=== PATIENT | male | born 1985 | race Caucasian/White ===

== ENCOUNTER 2017-06-14 22:00 | Inpatient (IN) | payer BC ==
[~2017-06-14] VITALS: Ht 182.9 cm; Wt 136.1 kg
--- NOTE | ~2017-06-14 | DS ---
Unit #: [id number] #: [id number] Patient: MARIS GUPTA [id number] [facility] [address] [place] [address] [id number] MR#: [id number] NAME: MARIS GUPTA ROOM: [facility] Age: 32 Sex: M Admission Date: 06/15/2017 : 1985 Discharge Date: 06/16/2017 Attending Physician: Malcolm Fabian M.D. Primary Care Physician: Primary Care Physician No DISCHARGE SUMMARY REASON FOR ADMISSION Depression. DIAGNOSTIC STUDIES LABORATORY RESULTS: Glucose 117. HOSPITAL COURSE The patient was admitted to inpatient unit on 06/15/2017 and discharged on 06/16/2017. The patient was attentive and cooperative in the program, able to participate in all the programing, maintained safe behavior. The patient refused to take any medication. Subsequently, the patient made progress. The patient requested for discharge. Denied any suicidal or homicidal ideation. Subsequently, the patient was discharged with a plan to follow up in outpatient program. DISCHARGE MEDICATIONS None as the patient refused. DISCHARGE DIAGNOSES Psychiatric: Major depressive disorder, recurrent, severe, F33.2. Secondary diagnosis: Deferred. Medical diagnosis: Obesity. Stressors: Psychosocial stressors. DISCHARGE INSTRUCTIONS The patient to follow up in outpatient clinic as per social media director. CONDITION ON DISCHARGE The patient was pleasant and cooperative. Denied any psychotic symptom or any suicidal ideation. PROGNOSIS Guarded. DIET AND ACTIVITY As tolerated. Dictated by... Malcolm Fabian M.D. Unit #: [id number] #: [id number] Patient: MARIS GUPTA SZC/modl TD: 06/16/2017 18:11 JOB #: [id number] DISCHARGE SUMMARY Page 1 of 1 X Malcolm Fabian MD X DISCHARGE SUMMARY
--- NOTE | ~2017-06-14 | PA ---
Unit #: [id number] #: [id number] Patient: MARIS ARGUETA [id number] [facility] [address] [place] [address] [id number] MR#: [id number] NAME: MARIS ARGUETA ROOM: 13 Age: 32 Sex: M Admission Date: 06/15/2017 : 1985 Date of Assessment: Attending Physician: Malcolm Fabian M.D. Admitting Physician: Malcolm Fabian M.D. Primary Care Physician: Primary Care Physician No PSYCHIATRIC ASSESSMENT INFORMANTS The patient reliability, fair informant and chart reliability, good. CHIEF COMPLAINT Depression and suicidal ideation. HISTORY OF PRESENT ILLNESS Mr. Mohan Argueta is a 32-year-old white male, who works as a social worker masters in [place], reported under a lot of stress, feeling sad and depressed. The patient presented with his brother and girlfriend due to suicidal ideation with a plan to attempt to shoot himself. The patient reported that he has access to weapon at home and reported that he was upset of having an argument with mother and voiced suicidal ideation, but denied any current suicidal ideation. Denied any homicidal ideation. The patient reports making those comments about harming himself. The patient reported increased symptoms of depression due to financial stress. Reported that he does not get any help, but overly concerned now. The patient denied any use of any drugs or alcohol. Currently, on no medication. Needing inpatient admission at this time for psychiatric stabilization. PAST PSYCHIATRIC HISTORY Remarkable for history of depression. No known history of any previous treatment. No history of any suicide attempt. FAMILY HISTORY AND SOCIAL HISTORY The patient has a good support system. Family psychiatric illness is unremarkable for any history of any psychiatric illness in the family. No known history of any abuse. No legal charges. MEDICAL HISTORY Unremarkable for any chronic medical condition, except for obesity. Musculoskeletal; muscle strength and tone, no atrophy or abnormal movement. Gait normal. MEDICATION HISTORY None. ALLERGIES No known drug allergies. SUBSTANCE ABUSE HISTORY History of alcohol use, age of onset 20 and marijuana, age of onset 20. Unit #: [id number] #: [id number] Patient: MARIS ARGUETA The patient denied any consequences. No history of blackout, HIV, hepatitis, withdrawal symptom, or any IV drug use. REVIEW OF SYSTEMS HEENT: Eyes, clear. Ears, nose, mouth, and throat; clear. CARDIOVASCULAR: Unremarkable. RESPIRATORY: Unremarkable. GI: Unremarkable. : Unremarkable. SKIN: Unremarkable. LYMPH NODE: Unremarkable. NEUROLOGIC: Unremarkable. ENDOCRINE: Unremarkable. HEMATOLOGIC: Unremarkable. ALLERGIC/IMMUNOLOGIC: Unremarkable. MUSCULOSKELETAL: Muscle strength and tone, no atrophy or abnormal movement. Gait normal. MENTAL STATUS EXAMINATION CONSTITUTIONAL: Measurement of vital signs; temperature 98.5, heart rate 91, respiratory rate 14, and blood pressure 134/64. Height 6 feet and weight 300 pounds. GENERAL APPEARANCE: The patient dressed casually. The patient did not show any facial deformity. MUSCULOSKELETAL: Please see above. PSYCHIATRIC EXAMINATION Description of speech; regular rate, normal volume, normal articulation, coherent, and spontaneous. Description of thought process, goal directed. Description of association, intact. Description of abnormal psychotic thinking; the patient denied any hallucinations or delusions, but suicidal ideation. Denied any homicidal ideation. Description of the patient's judgment: Concerning everyday activity, poor. Social situation, poor. Concerning psychiatric condition, poor. Complete mental status examination; oriented in time, place, and person. Recent and remote memory, fair. Attention span and concentration, fair. Language, able to name object and repeat phrases. Fund of knowledge, aware of current event and passive vocabulary intact. Mood and affect, sad and dysphoric. Insight and judgment, fair to poor. ASSETS AND LIABILITIES Assets, the patient is articulate and able to take care of his ADL. Liability, history of depression and financial problem. ADMITTING DIAGNOSES Psychiatric: Major depressive disorder, recurrent, severe, F33.2. Secondary diagnosis: Deferred. Medical diagnosis: Obesity. Stressors: Psychosocial stressors. PSYCHIATRIC PLAN AND TREATMENT GOAL AND DISCHARGE PLAN 1. Advised to admit the patient on the inpatient unit. Provide safe, supportive, and structured environment. 2. Ordered labs; CBC, CMP, UA, and UDS. Unit #: [id number] #: [id number] Patient: MARIS ARGUETA 3. Plan to consider medication such as Celexa for depression and trazodone for sleep. The patient reports that he does not want to try any medication. The patient to attend group therapy, individual therapy, and family session if possible. TREATMENT GOAL To attain euthymic mood, gain insight into his problem, and learn coping skills. DISCHARGE PLAN Plan to stabilize the patient and consider follow up in outpatient program. ESTIMATED LENGTH OF STAY 3 to 5 days. Dictated by... Luis Miguel Donahue/jose TD: 06/15/2017 15:26 JOB #: [id number] PSYCHIATRIC ASSESSMENT Page 1 of 1 X Malcolm Fabian MD X PSYCHIATRIC ASSESSMENT
--- NOTE | ~2017-06-14 | HP ---
Unit #: [id number] #: [id number] Patient: MARIS GUPTA [id number] [place] [address] [id number] MR#: [id number] NAME: MARIS GUPTA ROOM: 13 Age: 32 Sex: M Admission Date: 06/15/2017 : 1985 Attending Physician: Malcolm Fabian M.D. Admitting Physician: Malcolm Fabian M.D. Primary Care Physician: Primary Care Physician No HISTORY AND PHYSICAL HISTORY OF PRESENT ILLNESS The patient is a 32-year-old male who states he is here due to depression and suicidal ideation no attempt. PAST MEDICAL HISTORY None. PAST SURGICAL HISTORY For gall bladder removal. SOCIAL HISTORY Negative ALLERGIES None. FAMILY HISTORY Noncontributory. REVIEW OF SYSTEMS CONSTITUTIONAL: No fever or chills. HEENT: Denies any sore throat, ear pain or runny nose. CARDIOVASCULAR: Denies chest pain, irregular heart rhythm or palpitations. CHEST: Denies shortness of breath or cough. No hemoptysis. GASTROINTESTINAL: Denies nausea, vomiting, diarrhea or chronic constipation. ENDOCRINE: Denies history of increased thirst or urination. No recent significant weight loss or gain. GENITOURINARY: Denies dysuria, frequency, or hematuria. SKIN: Denies any rashes. HEMATOLOGIC: Denies history of increased bleeding or bruising. MUSCULOSKELETAL: Denies any hot, swollen joints. No generalized muscle pain. NEUROLOGIC: Denies problems with vision or speech. No frequent, severe headaches. No numbness, tingling or weakness in any extremities. Denies loss of bladder or bowel control. CURRENT MEDICATIONS None. PHYSICAL EXAMINATION Unit #: [id number] #: [id number] Patient: MARIS GUPTA GENERAL: Alert, oriented in no acute distress. VITAL SIGNS: Temperature 99.4, heart rate 98, respirations 16, blood pressure 145/88. HEIGHT: 6 feet WEIGHT: 300 pounds SKIN: Warm and dry without rash. Tattoo to the right lower extremity. Red areas to the left lower extremity that appear to be insect bites and an abrasion to the right ankle. HEENT: Normocephalic. TMs not viewed. Oral and nasal passages clear. Conjunctivae clear. PERRLA. EOMs intact. NECK: Supple without lymphadenopathy or thyromegaly. HEART: Regular rate and rhythm without murmur. LUNGS: Clear. ABDOMEN: Soft, nontender, without masses or hepatosplenomegaly. : Not done. EXTREMITIES: No evidence of cyanosis, clubbing or edema. Moves all without focal deficit. NEUROLOGICAL: Grossly within normal limits. Cranial Nerves: II: Visual villeda are intact. III, IV AND : Extraocular movements are intact. Pupils are equal, round and reactive to light. V: Facial sensation is grossly normal. VII: Facial movements and expression are normal. VIII: Auditory acuity grossly intact. IX, X: Uvula is midline. Phonation is normal. XI: Patient shrugs shoulders and turns head normally. XII: Tongue protrudes in the midline. Sensory and Motor Function: Sensory and motor sensation is grossly normal. Motor: moves all extremities well. Coordination: Gait is normal. Deep Tendon Reflexes: Intact. IMPRESSION Psychiatric admission RECOMMENDATIONS Psychiatric, per psychiatrist. MEDICAL: I see no contraindications to participating in facility's activities. MEDICAL PROGNOSIS Good. Dictated by... Radha Jacobsen/greg TD: 06/16/2017 03:13 JOB #: [id number] Unit #: [id number] #: [id number] Patient: MARIS GUPTA HISTORY AND PHYSICAL Page 1 of X Katie Rodriguez APR X HISTORY AND PHYSICAL
[2017-06-16 09:45] LABS: BASOPHIL# 0.1 X10e3 (0-0.3); BASOPHIL% 0.8 % (0-2.5); EOSINOPHIL# 0.2 X10e3 (0-0.7); EOSINOPHIL% 1.7 % (0.0-7.0); HEMATOCRIT 47.2 % (38.0-50.0); HEMOGLOBIN 15.3 gm/dL (13.0-16.0); LYMPHOCYTE# 2.3 X10e3 (1.0-3.5); LYMPHOCYTE% 23.2 % (17.0-45.0); MEAN CORPUSCULAR HEMOGLOBIN 27.9 PG (28-34); MEAN CORPUSCULAR HGB CONC 32.5 g/dL (30-36); MEAN PLATELET VOLUME 7.5 FL (6.5-11.5); MONOCYTE# 0.8 X10e3 (0-1.0); MONOCYTE% 7.9 % (3.0-12.0); NEUTROPHIL# 6.5 X10e3 (1.5-7.1); NEUTROPHIL% 66.4 % (40-75); PLATELET COUNT 305 X10e3 (140-420); RED BLOOD COUNT 5.49 X10e (3.90-5.60); RED CELL DISTRIBUTION WIDTH 14.3 % (11.0-15.5); WHITE BLOOD COUNT 9.8 X10e3 (4.0-10.5)
[2017-06-16 09:52] LABS: DIFF IND NO
[2017-06-16 10:35] LABS: ALBUMIN SERUM 4.3 g/dL (3.5-5.0); BILIRUBIN,TOTAL 0.9 mg/dL (0.2-2.0); BUN/CREATININE RATIO 11.81; CALCIUM SERUM 9.8 mg/dL (8.4-10.2); CREATININE SERUM 1.1 mg/dL (0.6-1.4); GLOM FILT RATE Estimated 89.6 mL/min (>60); POTASSIUM 4.7 mmol/L (3.5-5.1); PROTEIN TOTAL SERUM 7.4 g/dL (6.0-8.3)
== END 2017-06-16 14:04 | disposition home or self-care (01) | DRG 885 ==
LOC: P1S 06-15 01:21
PROVIDERS: Psychiatry & Neurology Psychiatry
DX: F33.2 Major depressive disorder, recurrent severe without psychotic features (principal); R45.851 Suicidal ideations; Z68.41 Body mass index [BMI] 40.0-44.9, adult; E66.9 Obesity, unspecified; Z90.49 Acquired absence of other specified parts of digestive tract
CPT/HCPCS: 80053; 85025